=== PATIENT | male | born 1970 | race Hispanic/Latino ===

== ENCOUNTER 2019-11-28 15:46 | Emergency (ER) | payer SELFPAY ==
--- OUTSIDE RECORDS SUMMARY | 2019-11-28 15:50 | XMS REPORT ---
:1970 Author Organization [facility] t Address [address] [place] [address] Care Team Providers Name Role Phone Unavailable Unavailable Unavailable Problems This patient has no known problems. Allergies, Adverse Reactions, Alerts This patient has no known allergies or adverse reactions. Medications This patient has no known medications.
--- NOTE | 2019-11-28 16:45 | RAD REPORT ---
EXAM DESCRIPTION: RAD - Chest Pa And Lat (2 Views) - 11/28/2019 4:32 pm CLINICAL HISTORY: DYSPNEA COMPARISON: None TECHNIQUE: Frontal and lateral views of the chest were obtained. FINDINGS: The lungs are underinflated. No peripheral mass or consolidation. No failure or volume ove rload. Heart size is normal and central vasculature is within normal limits. No pleural effusion o r pneumothorax seen. No acute bony finding noted. No aortic abnormality. IMPRESSION: No acute cardiopulmonary process.
--- NOTE | 2019-11-28 17:00 | ER ---
Nurse's Notes [facility] Name: Matt Romano Age: 49 yrs Sex: Male : 1970 Arrival Date: 11/28/2019 Time: 15:49 Bed 25 Private MD: Diagnosis: Dyspnea Presentation: 11/27 15:57 Chief complaint: Patient states: "I have asthma and since 3 weeks ago I have been ca1 having trouble breathing, I take my asthma meds and inhaler to no relief. SOB is worsening. Today, I had nosebleed". Denies cough. Denies fever. Coronavirus screen: Proceed with normal triage. Patient denies a cough. Patient reports shortness of breath or difficulty breathing. Patient denies measured and/or subjective temperature greater than 100.4F prior to today's visit. Patient denies travel on a cruise ship or to a country the [facility] currently lists as an affected area. Patient denies contact with known and/or suspected case of COVID-19. Ebola Screen: Patient negative for fever greater than or equal to 101.5 degrees Fahrenheit, and additional compatible Ebola Virus Disease symptoms Patient denies exposure to infectious person. Patient denies travel to an Ebola-affected area in the 21 days before illness onset. No symptoms or risks identified at this time. Initial Sepsis Screen: Does the patient meet any 2 criteria? No. Patient's initial sepsis screen is negative. Does the patient have a suspected source of infection? No. Patient's initial sepsis screen is negative. Risk Assessment: Do you want to hurt yourself or someone else? Patient reports no desire to harm self or others. Onset of symptoms was November 28, 2019. 15:57 Method Of Arrival: Ambulatory ca1 15:57 Acuity: TAYLER 3 ca1 Triage Assessment: 16:53 General: Appears in no apparent distress. comfortable, Behavior is calm, cooperative. ls4 Neuro: No deficits noted. Cardiovascular: No deficits noted. Respiratory: Reports shortness of breath at rest cough that is non-productive, dry, Onset: The symptoms/episode began/occurred gradually. Respiratory: No deficits noted. Historical: - Allergies: 16:02 No Known Allergies; ca1 - Home Meds: 16:02 Salbutamol Inhaler [Active]; Theophylline Oral [Active]; ca1 - PMHx: 16:02 Asthma; ca1 - PSHx: 16:02 None; ca1 - Immunization history:: Adult Immunizations up to date. - Social history:: Smoking status: Patient denies any tobacco usage or history of. Screenin:17 Abuse screen: Denies threats or abuse. Denies injuries from another. Nutritional ls4 screening: No deficits noted. Tuberculosis screening: No symptoms or risk factors identified. Fall Risk None identified. Assessment: 16:52 Pain: Denies pain. Cardiovascular: Capillary refill < 3 seconds Clubbing of nail beds ls4 is absent JVD is absent Patient's skin is warm and dry. Rhythm is regular Chest pain is denied. Respiratory: Airway is patent Respiratory effort is even, unlabored, Respiratory pattern is regular, Breath sounds are clear bilaterally. Breath sounds are diminished in right posterior lower lobe the patient has mild shortness of breath. Derm: Skin is intact, is healthy with good turgor, Skin is dry, Skin is normal, Skin temperature is warm. Vital Signs: 15:57 BP 119 / 88; Pulse 89; Resp 19 S; Temp 98.2(TE); Pulse Ox 97% on R/A; Weight 90.72 kg ca1 (R); Height 5 ft. 8 in. (175 cm) (R); Pain 0/10; 17:19 BP 132 / 88; Pulse 79; Resp 11; Temp 98.0(O); Pulse Ox 98% on R/A; Pain 0/10; ls4 15:57 Body Mass Index 29.62 (90.72 kg, 175 cm) ca1 ED Course: 15:49 Patient arrived in ED. am2 16:00 Triage completed. ca1 16:00 Keturah Brown FNP-C is PHCP. kb 16:00 Oscar Sosa MD is Attending Physician. kb 16:02 Arm band placed on right wrist. ca1 16:15 Lucy Ruano, RICHARD is Primary Nurse. ls4 16:17 Patient has correct armband on for positive identification. Bed in low position. Call ls4 light in reach. Side rails up X 1. Pulse ox on. NIBP on. Verbal reassurance given. 16:32 Chest Pa And Lat (2 Views) XRAY In Process Unspecified. EDMS 16:54 No provider procedures requiring assistance completed. Patient did not have IV access ls4 during this emergency room visit. Patient maintains SpO2 saturation greater than 95% on room air. Administered Medications: No medications were administered Outcome: 16:59 Discharge ordered by . katarina 17:05 Discharged to home ambulatory. ls4 17:05 Condition: good 17:05 Discharge instructions given to patient, Instructed on discharge instructions, follow up and referral plans. medication usage, safety practices, Demonstrated understanding of instructions, follow-up care, medications, Prescriptions given X 1. 17:19 Patient left the ED. ls4 Signatures: Dispatcher [employer] [facility] Keturah Brown, VONDA BURKS-Dorie Arguelles Lisa, RN RN ls4 Aicha Llanos RN RN ca1
--- NOTE | 2019-11-28 17:00 | EDPHYS ---
Physician Documentation [facility] Name: Matt Romano Age: 49 yrs Sex: Male : 1970 Arrival Date: 11/28/2019 Time: 15:49 Bed 25 Private MD: ED Physician Oscar Sosa HPI: 11/27 16:45 This 49 yrs old Male presents to ER via Ambulatory with complaints of kb Breathing Difficulty, Nose Bleed. 16:45 The patient has shortness of breath at rest. Onset: The symptoms/episode began/occurred kb 3 week(s) ago. Duration: The symptoms are intermittent. The patient's shortness of breath is aggravated by nothing, is alleviated by nothing. Associated signs and symptoms: The patient has no apparent associated signs or symptoms, Pertinent negatives: chest pain, non-productive cough, productive cough, fever. Severity of symptoms: At their worst the symptoms were mild moderate in the emergency department the symptoms are unchanged. The patient has experienced similar episodes in the past. The patient has not recently seen a physician. Pt reports his asthma has been bothering him every day for 3 weeks. States he sneezed this morning and his nose started bleeding. Bleeding resolved now. States he has been using his rescue inhaler everyday.. Historical: - Allergies: 16:02 No Known Allergies; ca1 - Home Meds: 16:02 Salbutamol Inhaler [Active]; Theophylline Oral [Active]; ca1 - PMHx: 16:02 Asthma; ca1 - PSHx: 16:02 None; ca1 - Immunization history:: Adult Immunizations up to date. - Social history:: Smoking status: Patient denies any tobacco usage or history of. ROS: 16:51 Constitutional: Negative for fever, chills, and weight loss, Neck: Negative for injury, kb pain, and swelling, Cardiovascular: Negative for chest pain, palpitations, and edema, Abdomen/GI: Negative for abdominal pain, nausea, vomiting, diarrhea, and constipation, Back: Negative for injury and pain, MS/Extremity: Negative for injury and deformity, Skin: Negative for injury, rash, and discoloration, Neuro: Negative for headache, weakness, numbness, tingling, and seizure. 16:51 ENT: Positive for nose bleed. 16:51 Respiratory: Positive for shortness of breath. Exam: 16:51 Constitutional: This is a well developed, well nourished patient who is awake, alert, kb and in no acute distress. Head/Face: Normocephalic, atraumatic. ENT: Nares patent. No nasal discharge, no septal abnormalities noted. Tympanic membranes are normal and external auditory canals are clear. Oropharynx with no redness, swelling, or masses, exudates, or evidence of obstruction, uvula midline. Mucous membranes moist. Neck: Trachea midline, no thyromegaly or masses palpated, and no cervical lymphadenopathy. Supple, full range of motion without nuchal rigidity, or vertebral point tenderness. No Meningismus. Chest/axilla: Normal chest wall appearance and motion. Nontender with no deformity. No lesions are appreciated. Cardiovascular: Regular rate and rhythm with a normal S1 and S2. No gallops, murmurs, or rubs. Normal PMI, no JVD. No pulse deficits. Respiratory: Lungs have equal breath sounds bilaterally, clear to auscultation and percussion. No rales, rhonchi or wheezes noted. No increased work of breathing, no retractions or nasal flaring. Abdomen/GI: Soft, non-tender, with normal bowel sounds. No distension or tympany. No guarding or rebound. No evidence of tenderness throughout. Skin: Warm, dry with normal turgor. Normal color with no rashes, no lesions, and no evidence of cellulitis. MS/ Extremity: Pulses equal, no cyanosis. Neurovascular intact. Full, normal range of motion. Neuro: Awake and alert, GCS 15, oriented to person, place, time, and situation. Cranial nerves II-XII grossly intact. Motor strength 5/5 in all extremities. Sensory grossly intact. Cerebellar exam normal. Normal gait. Vital Signs: 15:57 BP 119 / 88; Pulse 89; Resp 19 S; Temp 98.2(TE); Pulse Ox 97% on R/A; Weight 90.72 kg ca1 (R); Height 5 ft. 8 in. (175 cm) (R); Pain 0/10; 17:19 BP 132 / 88; Pulse 79; Resp 11; Temp 98.0(O); Pulse Ox 98% on R/A; Pain 0/10; ls4 15:57 Body Mass Index 29.62 (90.72 kg, 175 cm) ca1 MDM: 16:03 Patient medically screened. kb 16:49 Data reviewed: vital signs, nurses notes. Data interpreted: Pulse oximetry: on room air kb is 97 %. Interpretation: normal. 16:51 Counseling: I had a detailed discussion with the patient and/or guardian regarding: the kb historical points, exam findings, and any diagnostic results supporting the discharge/admit diagnosis, radiology results, the need for outpatient follow up, a family practitioner, to return to the emergency department if symptoms worsen or persist or if there are any questions or concerns that arise at home. 11/27 16:00 Order name: Chest Pa And Lat (2 Views) XRAY; Complete Time: 16:50 kb Administered Medications: No medications were administered Disposition: 11/28 09:41 Co-signature as Attending Physician, Oscar Sosa MD I agree with the assessment and lorenzo plan of care. Disposition: 11/28/19 16:59 Discharged to Home. Impression: Dyspnea. - Condition is Stable. - Discharge Instructions: Shortness of Breath, [id number], Asthma, Adult, [id number]. - Prescriptions for Prednisone 20 mg Oral Tablet - take 1 tablet by ORAL route once daily for 5 days; 5 tablet. - Medication Reconciliation Form, Thank You Letter, Antibiotic Education, Prescription Opioid Use form. - Follow up: Private Physician; When: 2 - 3 days; Reason: Recheck today's complaints, Continuance of care, Re-evaluation by your physician. Follow up: Emergency Department; When: As needed. Signatures: Dispatcher [employer] [facility] Keturah Brown, PROFESSIONAL MODEL-C PROFESSIONAL MODEL-Oscar Sharp MD MD cha Stewart, Lisa, RN RN ls4 Aicha Llanos RN RN ca1 Corrections: (The following items were deleted from the chart) 11/27 17:19 16:59 11/28/2019 16:59 Discharged to Home. Impression: Dyspnea. Condition is Stable. ls4 Forms are Medication Reconciliation Form, Thank You Letter, Antibiotic Education, Prescription Opioid Use. Follow up: Private Physician; When: 2 - 3 days; Reason: Recheck today's complaints, Continuance of care, Re-evaluation by your physician. Follow up: Emergency Department; When: As needed. kb
[2019-11-28 17:26] VITALS: BP 132/88; TEMP 98; O2SAT 98
== END 2019-11-28 17:19 | disposition home or self-care (01) ==
LOC: ER 15:46
DX: R06.00 Dyspnea, unspecified (principal); J45.909 Unspecified asthma, uncomplicated
CPT/HCPCS: 71046; 99284

== ENCOUNTER 2020-11-16 17:12 | Emergency (ER) | payer SELFPAY ==
--- OUTSIDE RECORDS SUMMARY | 2020-11-16 17:30 | XMS REPORT | Continuity of Care Document ---
:1970 Author Organization [facility] t Address [address] [place] [address] Care Team Providers Name Role Phone Unavailable Unavailable Unavailable Problems This patient has no known problems. Allergies, Adverse Reactions, Alerts This patient has no known allergies or adverse reactions. Medications This patient has no known medications. Procedures This patient has no known procedures. Results This patient has no known results.
--- NOTE | 2020-11-16 18:03 | RAD REPORT ---
EXAM DESCRIPTION: CT - Head Brain Wo Cont - 11/16/2020 5:40 pm CLINICAL HISTORY: HEADACHE COMPARISON: None TECHNIQUE: Axial 5 mm thick images of the head were obtained without IV contrast. All CT scans are performed using dose optimization technique as appropriate and may include automated exposure control or mA/KV adjustment according to patient size. FINDINGS: No intracranial hemorrhage, mass, edema or shift of mid-line structures. No acute infarcti on changes seen. No abnormal extra-axial fluid collections. Ventricles are normal. Mastoid air cells are clear. Right maxillary sinus mucosal thickening present without air-fluid level . No acute bony findings. IMPRESSION: No intracranial abnormality identified. Right maxillary sinus mucosal thickening without air-fluid level.
[2020-11-16] MEDS ORDERED: DIPHENHYDRAMINE 50 MG/ML VIAL ONE (18:15)
[2020-11-16] MEDS ORDERED: METOCLOPRAMIDE 10 MG/2mL INJ ONE (18:15)
[2020-11-16] MEDS ORDERED: KETOROLAC 30 MG/ML INJ ONE (18:15)
--- NOTE | 2020-11-16 18:48 | EDPHYS ---
Physician Documentation [facility] Name: Matt Romano Age: 50 yrs Sex: Male : 1970 Arrival Date: 11/16/2020 Time: 17:13 Bed 20 Private MD: ED Physician Harmeet Escobedo HPI: 11/16 18:38 This 50 yrs old Male presents to ER via Ambulatory with complaints of High pm1 Blood Pressure, Headache. 18:38 The patient has elevated blood pressure and discovered this at a drugstore. Onset: The pm1 symptoms/episode began/occurred Headache for 3 days. Found hypertension at drug store blood pressure machine today. Modifying factors: The symptoms are aggravated by Nothing, The symptoms are alleviated by Nothing. Associated signs and symptoms: The patient has no apparent associated signs or symptoms, Pertinent negatives: chest pain, dyspnea, nausea, visual changes, vomiting. Severity of symptoms: At its worst the blood pressure was 210 mm Hg, at drug store blood pressure machine. The patient has not experienced similar symptoms in the past. The patient has not recently seen a physician. Historical: - Allergies: 17:32 No Known Allergies; ss - Home Meds: 17:32 Salbutamol Inhaler [Active]; ss - PMHx: 17:32 Asthma; ss - PSHx: 17:32 None; ss - Immunization history:: Adult Immunizations up to date. - Social history:: Smoking status: Patient denies any tobacco usage or history of. ROS: 18:38 Constitutional: Negative for fever, chills, and weight loss, Eyes: Negative for injury, pm1 pain, redness, and discharge, Neck: Negative for injury, pain, and swelling, Cardiovascular: Negative for chest pain, palpitations, and edema, Respiratory: Negative for shortness of breath, cough, wheezing, and pleuritic chest pain, Abdomen/GI: Negative for abdominal pain, nausea, vomiting, diarrhea, and constipation, Back: Negative for injury and pain, MS/Extremity: Negative for injury and deformity, Skin: Negative for injury, rash, and discoloration. 18:38 Neuro: Positive for headache. Exam: 18:38 Constitutional: This is a well developed, well nourished patient who is awake, alert, pm1 and in no acute distress. Head/Face: Normocephalic, atraumatic. 18:38 Skin: Warm, dry with normal turgor. Normal color with no rashes, no lesions, and no evidence of cellulitis. MS/ Extremity: Pulses equal, no cyanosis. Neurovascular intact. Full, normal range of motion. 18:38 Cardiovascular: Rate: normal, Rhythm: regular, Pulses: no pulse deficits are appreciated, Heart sounds: normal, normal S1and S2, Edema: is not appreciated. 18:38 Respiratory: Exam negative for acute changes, respiratory distress, shortness of breath, Breath sounds: are clear throughout. 18:38 Neuro: Exam negative for acute changes, Orientation: is normal, Mentation: is normal, Motor: is normal, moves all fours, Gait: is steady, at a normal pace, without difficulty. Vital Signs: 17:29 BP 140 / 102; Pulse 97; Resp 16; Temp 98.1(TE); Pulse Ox 97% on R/A; Weight 90.72 kg; ss Height 5 ft. 11 in. (180.34 cm); Pain 9/10; 18:30 BP 109 / 73; Pulse 76; Resp 19; Pulse Ox 98% ; rb3 17:29 Body Mass Index 27.89 (90.72 kg, 180.34 cm) ss MDM: 17:20 Patient medically screened. pm1 18:47 Data reviewed: vital signs. Data interpreted: Pulse oximetry: on room air is 98 %. pm1 Interpretation: normal. Counseling: I had a detailed discussion with the patient and/or guardian regarding: the historical points, exam findings, and any diagnostic results supporting the discharge/admit diagnosis, radiology results, the need for outpatient follow up, to return to the emergency department if symptoms worsen or persist or if there are any questions or concerns that arise at home. 18:56 ED course: Pain 1/10 and blood pressure wnls, therefore will discharge the patient home.pm1 11/16 17:26 Order name: CT Head Brain wo Cont; Complete Time: 18:05 pm1 11/16 17:51 Order name: IV Saline Lock; Complete Time: 18:11 pm1 Administered Medications: 18:11 Drug: TORadol (ketorolac) 30 mg Route: IVP; Site: right antecubital; rb3 18:40 Follow up: Response: No adverse reaction; Pain is decreased rb3 18:11 Drug: Reglan (metoCLOPramide) 10 mg Route: IVP; Site: right antecubital; rb3 18:39 Follow up: Response: No adverse reaction rb3 18:11 Drug: Benadryl (diphenhydrAMINE) 25 mg Route: IVP; Site: right antecubital; rb3 18:39 Follow up: Response: No adverse reaction rb3 Disposition: 11/16/20 18:48 Discharged to Home. Impression: Headache. - Condition is Stable. - Discharge Instructions: General Headache Without Cause. - Prescriptions for Fiorinal 50- 325-40 mg Oral Capsule - take 1 capsule by ORAL route every 4 hours As needed - not to exceed 6 capsules per day; 20 capsule. - Medication Reconciliation Form, Thank You Letter, Antibiotic Education, Prescription Opioid Use form. - Follow up: Emergency Department; When: As needed; Reason: Worsening of condition. Follow up: Private Physician; When: 2 - 3 days; Reason: Recheck today's complaints, Continuance of care, Re-evaluation by your physician. - Problem is new. - Symptoms have improved. Addendum: 11/18/2020 19:57 Co-signature as Attending Physician, Harmeet Escobedo MD. r n Signatures: Dispatcher [employer] EDMS Harmeet Escobedo MD MD rn Smirch, Shelby, RN RN ss Marinas, Patrick, NP [employer]ER pm1 Cheryl Mclain RN RN rb3 Corrections: (The following items were deleted from the chart) 11/16 19:14 18:48 11/16/2020 18:48 Discharged to Home. Impression: Headache. Condition is Stable. rb3 Forms are Medication Reconciliation Form, Thank You Letter, Antibiotic Education, Prescription Opioid Use. Follow up: Emergency Department; When: As needed; Reason: Worsening of condition. Follow up: Private Physician; When: 2 - 3 days; Reason: Recheck today's complaints, Continuance of care, Re-evaluation by your physician. Problem is new. Symptoms have improved. pm1
--- NOTE | 2020-11-16 18:48 | ER ---
Nurse's Notes [facility] Name: Matt Romano Age: 50 yrs Sex: Male : 1970 Arrival Date: 11/16/2020 Time: 17:13 Bed 20 Private MD: Diagnosis: Headache Presentation: 11/16 17:29 Chief complaint: Patient states: headache x 3 days. PT checked his BP at [facility] today and it was 174/127. Coronavirus screen: Client denies travel out of the [place] in the last 14 days. Ebola Screen: Patient denies exposure to infectious person. Patient denies travel to an Ebola-affected area in the 21 days before illness onset. Initial Sepsis Screen: Does the patient meet any 2 criteria? No. Patient's initial sepsis screen is negative. Does the patient have a suspected source of infection? No. Patient's initial sepsis screen is negative. Risk Assessment: Do you want to hurt yourself or someone else? Patient reports no desire to harm self or others. Onset of symptoms was November 13, 2020. 17:29 Method Of Arrival: Ambulatory 17:29 Acuity: TAYLER 3 Triage Assessment: 17:20 Pain: Pain began x 3 days. rb3 Historical: - Allergies: 17:32 No Known Allergies; ss - Home Meds: 17:32 Salbutamol Inhaler [Active]; ss - PMHx: 17:32 Asthma; ss - PSHx: 17:32 None; ss - Immunization history:: Adult Immunizations up to date. - Social history:: Smoking status: Patient denies any tobacco usage or history of. Screenin:20 Abuse screen: Denies threats or abuse. Nutritional screening: No deficits noted. rb3 Tuberculosis screening: No symptoms or risk factors identified. Fall Risk None identified. Assessment: 17:20 General: Appears in no apparent distress. Behavior is calm, cooperative. Pain: rb3 Complains of pain in head. Neuro: Level of Consciousness is awake, alert, obeys commands, Oriented to person, place, time, situation. Neuro: Reports headache since x 3 days. Cardiovascular: Patient's skin is warm and dry. Respiratory: Airway is patent Respiratory effort is even, unlabored, Respiratory pattern is regular, symmetrical. GI: : No signs and/or symptoms were reported regarding the genitourinary system. 18:18 Reassessment: Patient appears in no apparent distress at this time. No changes from rb3 previously documented assessment. 18:39 Reassessment: Patient appears in no apparent distress at this time. Patient and/or rb3 family updated on plan of care and expected duration. Pain level reassessed. Patient is alert, oriented x 3, equal unlabored respirations, skin warm/dry/pink. Vital Signs: 17:29 BP 140 / 102; Pulse 97; Resp 16; Temp 98.1(TE); Pulse Ox 97% on R/A; Weight 90.72 kg; ss Height 5 ft. 11 in. (180.34 cm); Pain 9/10; 18:30 BP 109 / 73; Pulse 76; Resp 19; Pulse Ox 98% ; rb3 17:29 Body Mass Index 27.89 (90.72 kg, 180.34 cm) ED Course: 17:13 Patient arrived in ED. am2 17:18 Billy Prescott NP is PHCP. pm1 17:18 Harmeet Escobedo MD is Attending Physician. pm1 17:20 Patient has correct armband on for positive identification. Bed in low position. Call rb3 light in reach. Side rails up X 1. Pulse ox on. NIBP on. 17:32 Triage completed. ss 17:32 Arm band placed on right wrist. ss 17:33 Cheryl Mclain, RN is Primary Nurse. rb3 17:40 CT Head Brain wo Cont In Process Unspecified. EDMS 18:09 Inserted saline lock: 20 gauge in right antecubital area, using aseptic technique. rb3 19:13 No provider procedures requiring assistance completed. IV discontinued, intact, rb3 bleeding controlled, No redness/swelling at site. Pressure dressing applied. Administered Medications: 18:11 Drug: TORadol (ketorolac) 30 mg Route: IVP; Site: right antecubital; rb3 18:40 Follow up: Response: No adverse reaction; Pain is decreased rb3 18:11 Drug: Reglan (metoCLOPramide) 10 mg Route: IVP; Site: right antecubital; rb3 18:39 Follow up: Response: No adverse reaction rb3 18:11 Drug: Benadryl (diphenhydrAMINE) 25 mg Route: IVP; Site: right antecubital; rb3 18:39 Follow up: Response: No adverse reaction rb3 Outcome: 18:48 Discharge ordered by . pm1 19:13 Discharged to home ambulatory. rb3 19:13 Condition: stable 19:13 Discharge instructions given to patient, Instructed on discharge instructions, follow up and referral plans. medication usage, Demonstrated understanding of instructions, follow-up care, medications, Prescriptions given X 1. 19:14 Patient left the ED. rb3 Signatures: Dispatcher [employer] EDMO Wandy Fernandez RN RN Billy Nichols, LONG DISTANCE BILLING OPERATOR LONG DISTANCE BILLING OPERATOR pm1 Dorie Chaudhari am2 Cheryl Mclain, RN RN rb3
[2020-11-16 19:32] VITALS: TEMP 98.1
[2020-11-16 19:34] VITALS: BP 109/73; O2SAT 98
== END 2020-11-16 19:14 | disposition home or self-care (01) ==
LOC: ER 17:12
DX: R51.9 Headache, unspecified (principal)
CPT/HCPCS: 70450; 96374; 96375; 99284; J1200; J2765